=== PATIENT | female | born 1950 | race Caucasian/White ===

== ENCOUNTER → 2018-01-07 09:46 | Outpatient (CLI) | payer MEDICARE, SELFPAY ==
[2018-01-07 12:50] LABS: Absolute Lymphocyte Count 0.93 X10^3/ul (0.83-4.51); Absolute Neutrophil Count 4.2 X10^3/uL (2.0-7.7); Basophil# 0.01 X10^3/uL; Basophil% 0.2 % (0-1); Eosinophil# 0.19 X10^3/uL; Eosinophils% 3.4 % (0-5); Hematocrit 43.3 % (37-47); Hemoglobin 14.1 g/dl (12.0-15.0); Lymphocyte # 0.93 X10^3/ul (4.0); Lymphocyte % 16.5 % (19-41); Mean Corp Hgb Conc 32.6 g/gl (32-36); Mean Corpuscular Hgb 30.3 pg (27.0-32.0); Mean Corpuscular Volume 92.9 fL (81-99); Mean Platelet Vol. 10.4 fl (6.2-12.0); Monocyte# 0.28 X10^3/uL; Neutrophil # 4.21 X10^3/uL (2.7-7.7); Neutrophil % 74.7 % (47-70); Platelet Count 238 K/mm3 (150-450); RBC Distribution Width CV 14.6 % (11.6-14.6); RBC Distribution Width SD 48.9 fl (35.1-43.9); Red Blood Count 4.66 M/mm3 (4.2-5.4); White Blood Count 5.6 K/mm3 (4.4-11.0)
[2018-01-07 13:00] LABS: POSITIVE COUNT NO; POSITIVE DIFFERENTIAL NO; POSITIVE MORPHOLOGY NO
[2018-01-07 13:07] LABS: Ferritin 86 ng/mL (8-252); Iron 133 ug/dL (50-170)
[2018-01-07 13:08] LABS: Hemoglobin A1c 5.3 % (4.2-6.3)
== END ==
PROVIDERS: Visit Provider Family Medicine
DX: D50.9 Iron deficiency anemia, unspecified (principal); I10 Essential (primary) hypertension; R73.01 Impaired fasting glucose
CPT/HCPCS: 36415; 82728; 83036; 83540; 85025

== ENCOUNTER → 2018-01-23 10:14 | Outpatient (CLI) | payer MEDICARE, SELFPAY ==
[2018-01-23 12:23] LABS: AST(SGOT) 26 U/L (15-37); Alanine Aminotransfer ALT/SGPT 40 U/L (13-56); Albumin, Serum 3.7 g/dL (3.2-5.0); Alkaline Phosphatase 97 U/L (45-117); Bilirubin, Direct 0.18 mg/dL (0.00-0.30); Globulin 3.4 g/dL (2.2-4.2); Protein, Total 7.1 g/dL (6.4-8.2)
== END ==
PROVIDERS: Family Provider Family Medicine; PCP Family Medicine; Visit Provider Internal Medicine Rheumatology
DX: R74.8 Abnormal levels of other serum enzymes (principal)
CPT/HCPCS: 36415; 80076

== ENCOUNTER → 2018-05-01 07:51 | Outpatient (CLI) | payer MEDICARE, SELFPAY ==
--- NOTE | 2018-05-01 12:04 | PFT ---
INTRODUCTION: The patient is a 67-year-old female that presents for pulmonary function testing secondary to a diagnosis of pulmonary hypertension. Respiratory therapy reports good patient effort. Bronchodilators were used during testing. INTERPRETATION: Forced expiration spirometry demonstrates no evidence of a large airways obstructive ventilatory defect. There was no significant response to aerosolized bronchodilators. Spirograms are of good quality and plateau gradually. Body plethysmography was performed and reveals lung volumes to be within normal limits. Diffusing capacity by single breath CO is mildly reduced at 65% of predicted. When compared to previous pulmonary function studies dated April 2017, there has been a 25% improvement in the patient's DLCO. IMPRESSION: These pulmonary function studies demonstrate the presence of an isolated mild reduction in diffusing capacity, which appears to have improved since PFTs were last completed in April 2017.
== END ==
PROVIDERS: Family Provider Family Medicine; PCP Family Medicine; Visit Provider Internal Medicine Critical Care Medicine
DX: I27.20 Pulmonary hypertension, unspecified (principal); I48.0 Paroxysmal atrial fibrillation; M06.9 Rheumatoid arthritis, unspecified; J90 Pleural effusion, not elsewhere classified
CPT/HCPCS: 94060; 94726; 94729

== ENCOUNTER → 2018-12-02 13:19 | Outpatient (CLI) | payer MEDICARE, SELFPAY ==
[2018-11-04 09:33] VITALS: BMI 46.9
[2018-12-02 16:16] LABS: ALB/GLOB Ratio 1.1 RATIO (0.9-2.4); AST(SGOT) 24 U/L (15-37); Alanine Aminotransfer ALT/SGPT 28 U/L (13-56); Albumin, Serum 3.8 g/dL (3.2-5.0); Alkaline Phosphatase 91 U/L (45-117); Anion Gap 10 (5-15); BUN 26 mg/dL (7-18); BUN/Creat Ratio 25.7 RATIO (10-20); Calcium,Total 9.4 mg/dL (8.5-10.1); Chloride 108 mmol/L (98-107); Creatinine, Serum 1.01 mg/dL (0.55-1.02); EST Glomerular Filtration Rate 58 mL/min (>60); Est Glom Filt Rate - Afr Amer 71 mL/min (>60); Globulin 3.4 g/dL (2.2-4.2); Glucose 100 mg/dL (74-106); Potassium 4.2 mmol/L (3.5-5.1); Protein, Total 7.2 g/dL (6.4-8.2); Sodium Level 142 mmol/L (136-145); Thyroid Stim Hormone (TSH) 1.48 uIU/mL (0.358-3.74)
[2018-12-02 17:38] LABS: Absolute Lymphocyte Count 0.97 X10^3/ul (0.83-4.51); Absolute Neutrophil Count 3.5 X10^3/uL (2.0-7.7); Basophil# 0.01 X10^3/uL; Basophil% 0.2 % (0-1); Eosinophil# 0.19 X10^3/uL; Eosinophils% 3.8 % (0-5); Hematocrit 46.1 % (37-47); Hemoglobin 15.1 g/dl (12.0-15.0); Lymphocyte # 0.97 X10^3/ul (4.0); Lymphocyte % 19.6 % (19-41); Mean Corp Hgb Conc 32.8 g/gl (32-36); Mean Corpuscular Volume 91.5 fL (81-99); Mean Platelet Vol. 10.8 fl (6.2-12.0); Monocyte# 0.29 X10^3/uL; Monocyte% 5.9 % (0-10); Neutrophil # 3.47 X10^3/uL (2.7-7.7); Neutrophil % 70.3 % (47-70); Platelet Count 262 K/mm3 (150-450); RBC Distribution Width CV 14.3 % (11.6-14.6); RBC Distribution Width SD 47.1 fl (35.1-43.9); Red Blood Count 5.04 M/mm3 (4.2-5.4); White Blood Count 4.9 K/mm3 (4.4-11.0)
[2018-12-02 17:40] LABS: POSITIVE COUNT NO; POSITIVE DIFFERENTIAL NO; POSITIVE MORPHOLOGY NO
== END ==
PROVIDERS: Family Provider Family Medicine; PCP Family Medicine; Visit Provider Family Medicine
DX: N18.3 Chronic kidney disease, stage 3 (moderate) (principal); R73.01 Impaired fasting glucose; I48.0 Paroxysmal atrial fibrillation
CPT/HCPCS: 36415; 80053; 84443; 85025

== ENCOUNTER → 2019-04-15 | Outpatient (CLI) | payer MEDICARE, SELFPAY ==
[2018-11-04 09:33] VITALS: BMI 46.9
--- NOTE | 2019-04-16 11:01 | PFT ---
INTRODUCTION: The patient is a 68-year-old female that presents for pulmonary function studies secondary to a diagnosis of rheumatoid arthritis. Respiratory therapy reports good patient effort. Bronchodilators were used during testing. INTERPRETATION: Forced expiration spirometry demonstrates no evidence of a large airways obstructive ventilatory defect. There was no significant response to aerosolized bronchodilators. Spirograms are of good quality and plateau normally. Body plethysmography was performed and reveals lung volumes to be within normal limits. Diffusing capacity by single breath CO is reduced at 61% of predicted. IMPRESSION: Isolated mild reduction in diffusing capacity.
== END | disposition home or self-care (01) ==
LOC: PSN 06:44
PROVIDERS: Family Provider Family Medicine; PCP Family Medicine; Referring Provider Internal Medicine Critical Care Medicine; Visit Provider Internal Medicine Critical Care Medicine
DX: M06.9 Rheumatoid arthritis, unspecified (principal)
CPT/HCPCS: 94060; 94726; 94729

== ENCOUNTER → 2020-12-11 09:40 | Outpatient (CLI) | payer MEDICARE, SELFPAY ==
[2020-11-02 09:15] VITALS: BMI 49.2
[2020-12-11 12:49] LABS: Cholesterol 263 mg/dL (200); High Density Lipoprotein 65 mg/dL; Triglycerides 109 mg/dL; Very Low Density Lipoprotein 22 mg/dL (5-40)
== END ==
PROVIDERS: PCP Family Medicine; Visit Provider Family Medicine
DX: R73.01 Impaired fasting glucose (principal); I10 Essential (primary) hypertension
CPT/HCPCS: 36415; 80061

== ENCOUNTER 2020-12-28 14:02 | Outpatient (RCR) | payer MEDICARE, SELFPAY ==
[2020-11-02 09:15] VITALS: BMI 49.2
[2021-01-18] MEDS: COVID-19 VACC, MRNA(PFIZER)/PF 30 MCG/0.3 ML SYRINGE IM (07:13)
== END 2020-12-28 23:59 ==
LOC: IMMUN 14:02
PROVIDERS: PCP Family Medicine; Visit Provider Family Medicine
DX: Z23 Encounter for immunization (principal)
CPT/HCPCS: 0002A

== ENCOUNTER → 2024-02-10 | Outpatient (CLI) | payer MEDICARE, SELFPAY ==
--- NOTE | 2024-02-10 07:48 | ECHOD_ITS ---
Reason For Study: DYSPNEA Procedure This was a 2D Doppler, Color Flow transthoracic echocardiogram. The study was technically difficult. Contrast injection was performed. Exam performed in department. Left Ventricle Normal LV size. Left ventricular systolic function is normal. The left ventricular ejection fraction is 55 %. No regional wall motion abnormalities noted. Right Ventricle Normal RV size. Normal systolic function. Atria Normal left atrium. Normal right atrium. Mitral Valve There is mild mitral annular calcification. Mild (1+) eccentric mitral valve insufficiency. Tricuspid Valve Normal tricuspid valve. Moderate (2+) tricuspid valve insufficiency. Pulmonary artery systolic pressure is 68 mmHg. Moderate pulmonary hypertension. Aortic Valve Trisinus/trileaflet aortic valve. Mild focal aortic valve calcification. Pulmonic Valve The pulmonic valve is not well visualized. Great Vessels Normal aortic root. The pulmonary artery is normal size. Normal inferior vena cava. Pericardium/Pleural No pericardial effusion. Medication 22 gauge I.V. with prn adaptor inserted into left arm. Diluted definity 2ml given slow IV push to enhance endocardial definition. MMode/2D Measurements & Calculations LVIDd: 4.0 cm IVSd: 1.4 cm LVOT diam: 1.9 cm LVIDs: 2.7 cm LVPWd: 1.1 cm RVDd: 4.5 cm FS: 32.8 % LVOT area: 2.8 cm2 Ao root diam: 3.3 cm LAV(MOD-bp): 70.0 ml LVAd ap4: 25.2 cm2 LAV(MOD-bp) Indexed: 31.4 ml/m2 LVLd ap4: 7.5 cm LAV(MOD-sp2): 75.3 ml EDV(MOD-sp4): 69.0 ml LAV(MOD-sp4): 61.7 ml EDV(sp4-el): 71.9 ml LVAs ap4: 15.7 cm2 LVLs ap4: 6.1 cm ESV(MOD-sp4): 33.1 ml ESV(sp4-el): 34.0 ml EF(MOD-sp4): 52.0 % EF(sp4-el): 52.7 % LVAd ap2: 27.1 cm2 SV(MOD-sp4): 35.9 ml SV(MOD-sp2): 42.6 ml LVLd ap2: 7.5 cm EDV(MOD-sp2): 79.4 ml EDV(sp2-el): 83.5 ml LVAs ap2: 17.4 cm2 LVLs ap2: 6.8 cm ESV(MOD-sp2): 36.8 ml ESV(sp2-el): 38.0 ml EF(MOD-sp2): 53.7 % SV(sp4-el): 37.9 ml LA dimension(2D): 5.3 cm LA A4 area: 21.4 cm2 RA A4 area: 20.8 cm2 TAPSE: 1.7 cm Time Measurements MV dec time: 0.12 sec Doppler Measurements & Calculations MV E max miller: 103.4 cm/sec Lat Peak E' Miller: 14.4 cm/sec Med Peak E' Miller: 7.6 cm/sec MV A max miller: 78.1 cm/sec E/E' lat: 7.2 E/E' med: 13.7 MV E/A: 1.3 Ao V2 max: 133.7 cm/sec LV V1 max: 96.7 cm/sec MV dec slope: 895.6 cm/sec2 Ao max P.1 mmHg LV V1 max P.7 mmHg Ao V2 mean: 100.1 cm/sec LV V1 mean P.3 mmHg Ao mean P.4 mmHg LV V1 mean: 72.0 cm/sec Ao V2 VTI: 34.0 cm LV V1 VTI: 21.4 cm AV (velocity ratio): 0.63 YAZAN(I,D): 1.7 cm2 YAZAN(V,D): 2.0 cm2 SV(LVOT): 58.9 ml PA V2 max: 98.0 cm/sec TR max miller: 399.9 cm/sec PA max PG (full): 2.0 mmHg TR max P.0 mmHg ECHO/Echo Complete W/ Contrast Interpretation Summary Normal LV size. Left ventricular systolic function is normal. The left ventricular ejection fraction is 55 %. There is mild mitral annular calcification. Pulmonary artery systolic pressure is 68 mmHg. Moderate pulmonary hypertension. Contrast injection was performed. Ordering Physician: Sarah, Mantee Referring Physician: Messi Smith MD Performed By: Tosin Ortega RDCS and Student
== END | disposition home or self-care (01) ==
LOC: CVS 07:47
PROVIDERS: PCP Nurse Practitioner Family; Referring Provider Internal Medicine Cardiovascular Disease; Visit Provider Internal Medicine Cardiovascular Disease
DX: I27.21 Secondary pulmonary arterial hypertension (principal)
CPT/HCPCS: 93306; Q9957; A4216; C8929

== ENCOUNTER → 2024-03-16 | Outpatient (CLI) | payer MEDICARE, SELFPAY ==
[2024-03-16 12:21] LABS: Absolute Lymphocyte Count 0.89 X10^3/uL (0.83-4.51); Absolute Neutrophil Count 4.6 X10^3/uL (2.0-7.7); Basophil# 0.02 X10^3/uL; Basophil% 0.3 % (0-1); Eosinophil# 0.25 X10^3/uL; Hematocrit 42.7 % (37-47); Hemoglobin 13.4 g/dL (12.0-15.0); Lymphocyte # 0.89 X10^3/ul (0.83-4.51); Lymphocyte % 14.4 % (19-41); Mean Corp Hgb Conc 31.4 g/dL (32-36); Mean Corpuscular Hgb 26.6 pg (27.0-32.0); Mean Corpuscular Volume 84.7 fL (81-99); Mean Platelet Vol. 10.2 fl (6.2-12.0); Monocyte% 6.5 % (0-10); NRBC Flagged by Analyzer 0 % (0-5); Neutrophil # 4.59 X10^3/uL (2.7-7.7); Neutrophil % 74.3 % (47-70); Platelet Count 308 K/mm3 (150-450); RBC Distribution Width CV 17.4 % (11.6-14.6); RBC Distribution Width SD 52.4 fl (35.1-43.9); Red Blood Count 5.04 M/mm3 (4.2-5.4); White Blood Count 6.2 K/mm3 (4.4-11.0)
[2024-03-16 12:54] LABS: AST(SGOT) 21 U/L (15-37); Alanine Aminotransfer ALT/SGPT 20 U/L (13-56); Albumin, Serum 3.5 g/dL (3.2-5.0); Alkaline Phosphatase 107 U/L (45-117); Anion Gap 6 (5-15); BUN 23 mg/dL (7-18); BUN/Creat Ratio 22.5 RATIO (10-20); Calcium,Total 10.2 mg/dL (8.5-10.1); Chloride 102 mmol/L (98-107); Cholesterol 229 mg/dL (200); Creatinine, Serum 1.02 mg/dL (0.55-1.02); EST Glomerular Filtration Rate 57 mL/min (>60); Est Glom Filt Rate - Afr Amer 69 mL/min (>60); Globulin 3.6 g/dL (2.2-4.2); Glucose 99 mg/dL (74-106); High Density Lipoprotein 73 mg/dL; Potassium 4.7 mmol/L (3.5-5.1); Protein, Total 7.1 g/dL (6.4-8.2); Sodium Level 139 mmol/L (136-145); Triglycerides 71 mg/dL; Very Low Density Lipoprotein 14 mg/dL (5-40)
[2024-03-16 13:41] LABS: Vitamin D,25 Hydroxy 52.1 ng/mL
== END | disposition home or self-care (01) ==
LOC: BFHLAB 10:16
PROVIDERS: PCP Nurse Practitioner Family; Referring Provider Nurse Practitioner Family; Visit Provider Nurse Practitioner Family
DX: I10 Essential (primary) hypertension (principal); E55.9 Vitamin D deficiency, unspecified; E78.5 Hyperlipidemia, unspecified
CPT/HCPCS: 36415; 80053; 80061; 82306; 85025

== ENCOUNTER → 2024-06-10 | Outpatient (CLI) | payer MEDICARE, SELFPAY ==
[2024-06-10 10:54] LABS: Anion Gap 7 (5-15); BUN 24 mg/dL (7-18); BUN/Creat Ratio 21.4 RATIO (10-20); Chloride 106 mmol/L (98-107); Creatinine, Serum 1.12 mg/dL (0.55-1.02); EST Glomerular Filtration Rate 51 mL/min (>60); Est Glom Filt Rate - Afr Amer 62 mL/min (>60); Glucose 110 mg/dL (74-106); Potassium 4.6 mmol/L (3.5-5.1); Sodium Level 138 mmol/L (136-145)
== END | disposition home or self-care (01) ==
PROVIDERS: PCP Nurse Practitioner Family; Referring Provider Nurse Practitioner Gerontology; Visit Provider Nurse Practitioner Gerontology
DX: I10 Essential (primary) hypertension (principal)
CPT/HCPCS: 36415; 80048

== ENCOUNTER → 2024-08-30 | Outpatient (CLI) | payer MEDICARE, SELFPAY ==
--- OUTSIDE RECORDS SUMMARY | 2024-08-30 08:47 | XMS RPT_ITS | CCD ---
Author Organization [facility] Team Providers Care Forestry Supervisor Name Role Phone Yensho CUSTOMER FACILITIES SUPERVISOR, Angelica A Unavailable Unavailab Nina Salmeron Unavailable Unavailable Mandi MONTES, Laeh A Unavailable Unavailable Nina Lua Unavailable Unavailable Nishi BLANKENSHIP, Elinor Pillai Unavailable Unavaila ble Ramirez BLANKENSHIP, Angelica A Unavailable Unavailab eduardo Corey MD, Jeremy Jimenez Primary Care Provider [phone] Leora HILARIO, Jeremy Jimenez Primary Care Provider JEREMY COREY Primary Care Unavailable Allergies Allergy Classification Reported Allergen(s) Allergy Type Date of Onset Reaction(s) Facility (6 sources) traMADol drug allergy 06-21-2016 itching [facility] Work Phone: (5 sources) Lisinopril; Translations: [LISINOPRIL] Drug Allergy 01-31-[address] [facility] Work Phone: Medications Current Medications Medication Drug Class(es) Dates Sig (Normalized) Sig (Original) amLODIPine 10 mg oral tablet (4 sources) Dihydropyridine Calcium Channel Ken Start: 6 take 1 tablet by mouth once daily amLODIPine (NORVASC) 10 mg tablet TAKE 1 TABLET BY MOUTH ONCE DAILY. 30 tablet 2 12/05/2015 Active Comment on above: TAKE 1 TABLET BY PAULINE ONCE DAILY. aspirin 81 mg delayed release oral tablet (4 sources) Platelet Aggregation Inhibitor, Nonsteroidal Anti-inflammatory Drug Start: 7 take 1 tablet by mouth once daily aspirin, enteric coated (ADULT LOW DOSE ASPIRIN) 81 mg ORAL TbEC Take one(1) tablet daily. 0 08/18/2007 Active Comment on above: Take one(1) tablet d aily. COMPOUNDED PRESCRIPTION (4 sources) Start: 3 COMPOUNDED PRESCRIPTION Indications: Edema KNEE HIGH COMPRESSION STOCKINGS 30-40 MM. 2 pair. DX: EDEMA 2 Each 3 07/14/2013 Active Comment on above: KNEE HIGH COMPRESSIO N STOCKINGS 30-40 MM. 2 pair. DX: EDEMA hydroCHLOROthiazide 25 mg / valsartan 320 mg oral tablet (4 sources) Thiazide Diuretic, Angiotensin 2 Receptor Ken Start: 6 take 1 tablet by mouth once daily Valsartan-Hydroc hlorothiazide 320-25 mg per tablet TAKE 1 TABLET BY MOUTH ONCE DAILY. 30 tablet 2 12/05/2015 Active Comment on above: TAKE 1 TABLET BY PAULINE TH ONCE DAILY. lovastatin 10 mg oral tablet (4 sources) HMG-CoA Reductase Inhibitor Start: 6 take 1 tablet by mouth once daily at bedtime for hyperlipidemia lovastatin (MEVACOR) 10 mg tablet TAKE 1 TABLET BY MOUTH DAILY AT BEDTIME. FOR CHOLESTEROL. 30 tablet 1 11/08/2015 Active Comment on above: TAKE 1 TABLET BY PAULINE TH DAILY AT BEDTIME. FOR CHOLESTEROL. naproxen sodium 220 mg oral tablet (4 sources) Nonsteroidal Anti-inflammatory Drug Start: 7 take 1 tablet by mouth twice daily as needed Naproxen Sodium (ALEVE) 220 mg ORAL Tab Take one(1) tablet twice daily as needed 0 05/28/2007 Active Comment on above: Take one(1) tablet t wice daily as needed traMADol hydrochloride 50 mg oral tablet (4 sources) Opioid Agonist Start: 5 take 1 tablet by mouth every four hours as needed for pain traMADol (ULTRAM) 50 mg tablet Indications: Osteoarthrosis, unspecified whether generalized or localized, lower leg Take 1 tablet by mouth every 4 hours as needed for Pain. 60 tablet 0 03/16/2015 Active Comment on above: Take 1 tablet by pauline th every 4 hours as needed for Pain. Completed/Discontinued Medications Medication Drug Class(es) Dates Sig (Normalized) Sig (Original) ALBUTEROL SULFATE (12 sources) beta2-Adrenergic Agonist Start: 06-21-2016 End: 04-30-2017 take 2 puff(s) by inhalation every four hours as needed VENTOLIN HFA 108 (90 Base) MCG/ACT AERS INH 2 puff q4h as needed ALBUTEROL SULFATE [id number] Anne-Marie Danileson PA-C Start: 06-21-2016 take 2 puff(s) by in halation every four hours as needed VENTOLIN HFA 108 (90 Base) MCG/ACT AERS INH 2 puff q4h as needed ALBUTEROL SULFATE [id number] Gus Goldman Start: 06-21-2016 End: 04-30-2017 take 2 puff(s) by inhalation every four hours as needed VENTOLIN HFA 108 (90 Base) MCG/ACT AERS INH 2 puff q4h as needed ALBUTEROL SULFATE [id number] Gus Goldman DO Start: 06-21-2016 take 2 puff(s) by in halation every four hours as needed VENTOLIN HFA 108 (90 Base) MCG/ACT AERS INH 2 puff q4h as needed ALBUTEROL SULFATE [id number] Gus Goldman DO Start: 06-21-2016 End: 04-30-2017 take 2 puff(s) by inhalation every four hours as needed VENTOLIN HFA 108 (90 Base) MCG/ACT AERS INH 2 puff q4h as needed ALBUTEROL SULFATE [id number] Anne-Marie Danielson PA-C amLODIPine 10 mg / benazepril hydrochloride 20 mg oral capsule (12 sources) Dihydropyridine Calcium Channel Ken, Angiotensin Converting Enzyme Inhibitor Start: 06-21-2016 End: 08-13-2016 take 1 tablet by mouth once daily AMLODIPINE BESY-BENAZEPRIL HCL 10-20 MG CAPS One tablet by mouth daily AMLODIPINE BESY-BENAZEPRIL HCL [id number] Elinor Almodovar LPN amLODIPine 10 mg / hydroCHLOROthiazide 25 mg / valsartan 320 mg oral tablet (12 sources) Thiazide Diuretic, Dihydropyridine Calcium Channel Ken, Angiotensin 2 Receptor Ken Start: 06-21-2016 End: 08-13-2016 take 1 tablet by mouth once daily AMLODIPINE-VALSARTA N-HCTZ 10-320-25 MG TABS One tablet by mouth daily AMLODIPINE-VALSARTA N-HCTZ [id number] Elinor Freya Nishi CUSTOMER FACILITIES SUPERVISOR ferrous sulfate (20 sources) Start: 11-01-2016 take 1 tablet by mouth once daily IRON 325 (65 Fe) MG TABS One tablet by mouth daily FERROUS SULFATE [id number] Messi Smith MD Start: 11-01-2016 End: 04-30-2017 take 1 tablet by mouth once daily IRON 325 (65 Fe) MG TABS One tablet by mouth daily FERROUS SULFATE [id number] Anne-Marie Danielson PA-C Start: 11-01-2016 End: 04-30-2017 take 1 tablet by mouth once daily IRON 325 (65 Fe) MG TABS One tablet by mouth daily FERROUS SULFATE [id number] Anne-Marie Danielson PA-C Start: 11-01-2016 take 1 tablet by pauline th once daily IRON 325 (65 Fe) MG TABS One tablet by mouth daily FERROUS SULFATE [id number] Messi Smith MD Start: 06-21-2016 take 1 tablet by pauline th once daily [facility] IRON 325 (65 Fe) MG TABS One tablet by mouth daily FERROUS SULFATE [id number] Elinor Zunigain Almodovar CUSTOMER FACILITIES SUPERVISOR Start: 06-21-2016 End: 11-22-2016 take 1 tablet by mouth once daily [facility] IRON 325 (65 Fe) MG TABS One tablet by mouth daily FERROUS SULFATE [id number] Elinor Freya Almodovar CUSTOMER FACILITIES SUPERVISOR folic acid 1 mg oral tablet (12 sources) Start: 11-01-2016 End: 04-30-2017 take 1 tablet by mouth once daily FOLIC ACID 1 MG TABS One tablet by mouth daily FOLIC ACID [id number] Anne-Marie Danielson PA-C furosemide 40 mg oral tablet (18 sources) Loop Diuretic Start: 06-21-2016 take 1 tablet by mouth twice daily FUROSEMIDE 40 MG TABS One tablet by mouth twice daily FUROSEMIDE [id number] Gus Goldman DO Start: 06-21-2016 End: 06-24-2016 take 1 tablet by mouth once daily FUROSEMIDE 40 MG TABS One tablet by mouth daily FUROSEMIDE [id number] Elinor Freya Almodovar CUSTOMER FACILITIES SUPERVISOR leucovorin 5 mg oral tablet (6 sources) Folate Analog Start: 04-30-2017 LEUCOVORIN JAKY CIUM 5 MG TABS day after methotrexate LEUCOVORIN CALCIUM [id number] Anne-Marie Danielson PA-C lisinopril 20 mg oral tablet (10 sources) Angiotensin Converting Enzyme Inhibitor Start: 06-21-2016 End: 05-06-2017 take 1 tablet by mouth once daily LISINOPRIL 20 MG TABS One tablet by mouth daily LISINOPRIL [id number] Elinor Freya Almodovar CUSTOMER FACILITIES SUPERVISOR methotrexate 2.5 mg oral tablet (10 sources) Folate Analog Metabolic Inhibitor Start: 11-01-2016 take 8 tablets by mouth every week METHOTREXATE 2.5 MG TABS 8 tablets by mouth weekly METHOTREXATE SODIUM [id number] Elinor Freya Almodovar CUSTOMER FACILITIES SUPERVISOR Start: 11-01-2016 take 6 tablets by mo uth every week METHOTREXATE 2.5 MG TABS six tablets by mouth weekly METHOTREXATE SODIUM [id number] Messi Smith MD METOPROLOL SUCCINATE (16 sources) beta-Adrenergic Ken Start: 06-21-2016 take 1 tablet by mouth once daily TOPROL XL 50 MG [id number] One tablet by mouth daily METOPROLOL SUCCINATE [id number] Gus Hilda Goldman DO Start: 06-21-2016 take 1 tablet by pauline th once daily TOPROL XL 50 MG [id number] One tablet by mouth daily METOPROLOL SUCCINATE [id number] Gus Hilda Goldman DO Start: 06-21-2016 take 1 tablet by pauline th once daily TOPROL XL 50 MG [id number] One tablet by mouth daily METOPROLOL SUCCINATE [id number] Gus Hlida Goldman DO Start: 12-05-2015 take 1 tablet by pauline th once daily metoprolol succinate ER (TOPROL XL) 25 mg 24 hr tablet TAKE 1 TABLET BY MOUTH ONCE DAILY. 30 tablet 2 12/05/2015 Active Comment on above: TAKE 1 TABLET BY PAULINE ONCE DAILY. predniSONE 5 mg oral tablet (18 sources) Corticosteroid Start: 7 take 1 tablet by mouth once daily PREDNISONE 5 MG TABS One tablet by mouth daily PREDNISONE [id number] Messi Smith MD Start: 11-01-2016 End: 04-30-2017 PREDNISONE 5 MG TABS Take milian lf tablet daily PREDNISONE [id number] Precious Ratliff RN RN Problems Active Problems Problem Classification Problem Date Documented Da te Episodic/Chronic Cardiac dysrhythmias (6 sources) Atrial fibrillation; Translations: [Paroxysmal atrial fibrillation] Onset: 10-24-2016 10-24-2016 Chronic Chronic obstructive pulmonary disease and bronchiectasis (6 sources) Chronic obstructive lung disease; Translations: [Chronic obstructive pulmonary disease, unspecified] Onset: 08-01-2016 08-01-2016 Chronic Congestive heart failure; nonhypertensive (6 sources) Acute on chronic diastolic (congestive) heart failure; Translations: [Acute on chronic diastolic (congestive) heart failure] Onset: 10-24-2016 10-24-2016 Chronic Disorders of lipid metabolism (4 sources) Hyperlipidemia; Translations: [Hyperlipidemia, unspecified] 10-17-2010 Chronic Essential hypertension (14 sources) Hypertensive disorder; Translations: [Benign essential hypertension] Onset: 05-28-2007 Resolved: 06-07-2008 04-30-2017 Chronic Genitourinary symptoms and ill-defined conditions (4 sources) Urge incontinence of urine; Translations: [Urge incontinence] 03-15-2010 Chronic Osteoarthritis (4 sources) Osteoarthritis; Translations: [Osteoarthrosis, unspecified whether generalized or localized, lower leg] 10-17-2010 Chronic Other nutritional; endocrine; and metabolic disorders (18 sources) Overweight; Translations: [Body mass index (BMI) 45.0-49.9, adult] Onset: 08-01-2016 Resolved: 04-30-2017 01-20-2017 Chronic Other nutritional; endocrine; and metabolic disorders (9 sources) Body mass index (BMI) 45.0-49.9, adult; Translations: [Body mass index (BMI) 45.0-49.9, adult] Onset: 11-01-2016 Resolved: 04-30-2017 01-20-2017 Chronic Other nutritional; endocrine; and metabolic disorders (3 sources) Obesity; Translations: [Obesity, unspecified] Onset: 08-01-2016 08-01-2016 Chronic Other nutritional; endocrine; and metabolic disorders (4 sources) Morbid obesity; Translations: [Morbid (severe) obesity due to excess calories] Onset: 08-16-2009 10-17-2010 Chronic Pulmonary heart disease (6 sources) Pulmonary hypertension; Translations: [Other secondary pulmonary hypertension] Onset: 10-24-2016 10-24-2016 Chronic Residual codes; unclassified (4 sources) Sleep apnea; Translations: [Sleep apnea, unspecified] Onset: 08-18-2007 10-17-2010 Chronic Residual codes; unclassified (4 sources) Family history of diabetes mellitus; Translations: [Family history of diabetes mellitus] 03-15-2010 Episodic Residual codes; unclassified (4 sources) Edema; Translations: [Edema, unspecified] 10-22-2021 Episodic Respiratory failure; insufficiency; arrest (12 sources) Chronic hypoxemic respiratory failure; Translations: [Czxlp-vo-tfrmqpp respiratory failure] Onset: 08-01-2016 08-28-2016 Chronic Rheumatoid arthritis and related disease (6 sources) Rheumatoid arthritis; Translations: [Rheumatoid arthritis, unspecified] Onset: 08-28-2016 08-28-2016 Chronic Past or Other Problems Problem Classification Problem Date Documented Date Episodic/Chronic Deficiency and other anemia (6 sources) Anemia; Translations: [Anemia, unspecified] Onset: 01-20-2017 01-20-2017 Episodic Diabetes mellitus without complication (4 sources) Impaired fasting glycemia; Translations: [Impaired fasting glucose] Onset: 03-15-2010 10-17-2010 Episodic Other injuries and conditions due to external causes (6 sources) Hypoxia; Translations: [Idiopathic sleep related nonobstructive alveolar hypoventilation] Onset: 11-14-2016 11-14-2016 Episodic Other lower respiratory disease (9 sources) Cough; Translations: [Restrictive lung disease] Onset: 06-24-2016 06-24-2016 Episodic Other lower respiratory disease (3 sources) Restrictive lung disease; Translations: [Other disorders of lung] Onset: 08-01-2016 08-01-2016 Episodic Karissa-; endo-; and myocarditis; cardiomyopathy (6 sources) Pericardial effusion; Translations: [Pericardial effusion (noninflammatory)] Onset: 08-28-2016 08-28-2016 Episodic Pleurisy; pneumothorax; pulmonary collapse (6 sources) Pleural effusion; Translations: [Pleural effusion, not elsewhere classified] Onset: 08-28-2016 08-28-2016 Episodic Respiratory failure; insufficiency; arrest (6 sources) Acute respiratory failure; Translations: [Acute respiratory failure with hypoxia] Onset: 06-24-2016 06-24-2016 Episodic Results Test Name Value Interpretation Reference Range Facility [facility] 03-19-2024 [facility] HNO ID: [id number] Author: COORDINATOR, MAMMOGRAPHY, ? Service: ? Author Type: Physician Type: Letter Filed: 03/19/2024 13:10 Note Text: March 19, 2024 PID: [id number] Martita Noah [address] [place] [address] Dear Ms. Zamora, We are pleased to inform you that the results of your recent breast imaging exam on 03/18/2024 are normal. Early detection of cancer is very important. We also understand recommendations regarding breast cancer screening are controversial. Please discuss with your primary care provider which strategy is best for you and whether a mammogram is right for you. Your imaging studies and report will be kept on file at [facility] as part of your permanent medical record and are available for your continuing care. Thank you for allowing us to help in meeting your health care needs. Sincerely, Dr. Humphreys Interpreting Radiologist [facility] (Normal over 40) Normal [facility] SCREENING W [facility] 03-18 [facility] SCREENING W LAURA * * *Final Report* * * DATE OF EXAM: Mar 18 2024 8:55AM [facility] [id number] - [facility] SCREENING W LAURA / PROCEDURE REASON: Z12.39 * * * * Physician Interpretation * * * * RESULT: #[id number] - [facility] SCREENING W LAURA BILATERAL DIGITAL SCREENING MAMMOGRAM TOMOSYNTHESIS WITH CAD: 03/18/2024 HISTORY: /SEE TECH NOTE /Z12.39 /Screening Mammogram with LAURA - patient reports NO breast symptoms /priors available for comparison. RESULT: TECHNIQUE: The study was acquired using full field digital technology and interpreted from soft copy. Digital Breast Tomosynthesis (DBT) images were obtained and used to assist in the interpretation of this examination. Current study was also evaluated with a Computer Aided Detection (CAD). Comparison is made to exams dated: 03/06/2023 mammogram, 01/10/2022 mammogram, 07/28/2020 mammogram, and 12/14/2018 mammogram - [facility]. There are scattered areas of fibroglandular density. There are benign appearing calcifications in both breasts. No significant masses, calcifications, or other findings are seen in either breast. There has been no significant interval change. IMPRESSION: BENIGN FINDING There is no mammographic evidence of malignancy. A 1 year screening mammogram is recommended. Tamy Humphreys M.D., lm/nohemi:03/19/2024 13:10:50 copy to: Medardo TEJEDA, ph: [phone] Manager Cardiac Cath(s): RT Edin(R)(M), [facility] letter sent: Normal over 40 Mammogram BI-RADS: 2 Benign finding Multiple national specialty organizations have released breast cancer screening guidelines for women at average risk for developing breast cancer - guidelines that are based on both evidence and opinion, yet differ on when to start and how often to screen for breast cancer. With representation from Breast Imaging, Internal Medicine, Women's Health, Family Medicine, and Medical/Surgical Oncology, the [facility] has carefully reviewed the data and reached the following consensus: 1) All women should engage in shared decision-making with their providers to decide when to start and how often to screen; 2) All women should have the opportunity to start screening mammography at age 40; 3) For women ages 45-55, we recommend annual screening mammograms; 4) For women ages 55 and over, we support both the transition from an annual to a biennial interval if this aligns more with patient's values and preferences, or continuation with annual screening; 5) All women should discuss with their providers when to stop screening mammograms. Cashier Associate: Nohemi Transcribe Date/Time: Mar 18 2024 8:10A Dictated by: TAMY HUMPHREYS MD This examination was interpreted and the report reviewed and electronically signed by: TAMY HUMPHREYS MD on Mar 19 2024 1:10PM EST [id number] CN Normal [facility] SCREENING W TOMOon 03-[address] [facility] Lab Report: Basic Metabolic Profile (BMP)on 11-04-2017 Anion gap 4 mmol/L Low 5-15 [facility] Work Phone: [phone] BUN/Creatinine Ratio 22.3 RATIO High 10-20 [facility] Work Phone: [phone] Calcium 9.3 mg/dL Invalid Interpretation Code 8.5-10.1 [facility] Work Phone: [phone] Chloride 103 mmol/L Invalid Interpretation Code 98-107 [facility] Work Phone: [phone] CO2 34.0 mmol/L High 21.0-32.0 [facility] Work Phone: [phone] Creatinine 1.03 mg/dL High 0.55-1.02 [facility] Work Phone: [phone] eGFR (non-black) 57 mL/min/{1.73_m2} Low >60 [facility] Work Phone: [phone] eGFR (non-black) 69 mL/min/{1.73_m2} Invalid Interpretation Code >60 [facility] Work Phone: [phone] Glucose 98 mg/dL Invalid Interpretation Code 70-110 [facility] Work Phone: [phone] Potassium 3.9 mmol/L Invalid Interpretation Code 3.5-5.1 [facility] Work Phone: [phone] Sodium 141 mmol/L Invalid Interpretation Code 136-145 [facility] Work Phone: [phone] Urea nitrogen 23 mg/dL High 7-18 [facility] Work Phone: [phone] Lab Report: Magnesiumon 01-0 Magnesium 2.1 mg/dL Invalid Interpretation Code 1.8-2.4 [facility] Work Phone: [phone] Office Visit: COPD & pulmona ry hypertensionon 05-06-2017 Dietary management education, guidance, and counseling (procedure) yes Invalid Interpretation Code [facility] Phone: Documentation of current medications (procedure) Done Invalid Interpretation Code [facility] Phone: Protein mass conc Done [facility] Phone: Tobacco smoking status NHIS Never Invalid Interpretation Code [facility] Work Phone: Tobacco smoking status NHIS Tobacco smoking status NHIS Invalid Interpretation Code [facility] Work Phone: [phone] Tobacco smoking status NHIS Never smoker [facility] Work Phone: Tobacco use [facility] Never smoker Invalid Interpretation Code [facility] Work Phone: Office Visit: [facility] 04-30-20 17 Dietary management education, guidance, and counseling (procedure) yes Invalid Interpretation Code [facility] Work Phone: [phone] Documentation of current medications (procedure) Done Invalid Interpretation Code [facility] Work Phone: [phone] Fall risk assessment No Invalid Interpretation Code [facility] Work Phone: [phone] Protein mass conc Done [facility] Work Phone: [phone] Office Visit: Consult- anemi a- for colonoscopy & EGDon 01-20-2017 Tobacco smoking status NHIS Never [facility] Work Phone: [phone] Tobacco smoking status VTIS Never smoker [facility] Work Phone: [phone] Tobacco use [facility] Never smoker Invalid Interpretation Code [facility] Work Phone: [phone] External Other: Preferred Me thod of [employer] 11-01-2016 GE use only - for LinkLogic import when terms are not otherwise specified secmsg Invalid Interpretation Code [facility] Work Phone: [phone] METHCONTACT secmsg [facility] Work Phone: [phone] Clinical Lists Update: Prelo dixonac operator 10-24-2016 Left ventricular Ejection fraction 60 % Invalid Interpretation Code [facility] Work Phone: [phone] Clinical Lists Update: Prelo dixonac operator 08-07-2016 BUN/Creatinine Ratio 32.6 mg/mg [facility] Work Phone: [phone] Calcium 9.0 mg/dL [facility] Work Phone: [phone] Chloride 92 mmol/L [facility] Work Phone: [phone] CO2 36.0 mmol/L Invalid Interpretation Code [facility] Work Phone: [phone] CO2 ppres (BldV) 36.0 mmol/L [facility] Work Phone: [phone] Creatinine 0.98 mg/dL [facility] Work Phone: [phone] Glucose 113 mg/dL Invalid Interpretation Code [facility] Work Phone: [phone] Glucose mass conc 113 mg/dL [facility] Work Phone: [phone] Potassium 4.2 mmol/L [facility] Work Phone: [phone] Sodium 135 mmol/L [facility] Work Phone: [phone] Urea nitrogen 32 mg/dL [facility] Work Phone: [phone] Clinical Lists Update: Prelo dixonac operator 08-05-2016 Hematocrit (HCT) 33.1 % Invalid Interpretation Code [facility] Work Phone: [phone] Hematocrit Volume Fraction (Bld) 33.1 % [facility] Work Phone: [phone] Hemoglobin (HGB) 9.6 g/dL Invalid Interpretation Code [facility] Work Phone: [phone] Platelets 408 10*3/mm3 Invalid Interpretation Code [facility] Work Phone: [phone] Platelets #/vol (Bld) 408 10*3/mm3 [facility] Work Phone: [phone] WBC #/vol (Bld) 6.8 10*3/uL [facility] Work Phone: [phone] WBC (Leukocytes) 6.8 10*3/uL Invalid Interpretation Code [facility] Work Phone: [phone] Vital Signs Date Time Vital Sign Value Performing Clinician Faci lity 05-06-2017 07:44-0400 BMI (Body Mass Index) 47.18 kg/m2 lEinor Almodovar LPN [facility] Work Phone: 05-06-2017 07:44-0400 Body Temperature 97.8 [degF] Elinor Almodovar LPN [facility] Work Phone: 05-06-2017 07:44-0400 BP Diastolic 84 mm[Hg] Elinor Almodovar CUSTOMER FACILITIES SUPERVISOR [facility] Work Phone: 05-06-2017 07:44-0400 BP Systolic 132 mm[Hg] Elinor Almodovar CUSTOMER FACILITIES SUPERVISOR [facility] Work Phone: 05-06-2017 07:44-0400 Height 157.48 cm Elinor Almodovar CUSTOMER FACILITIES SUPERVISOR [facility] Work Phone: 05-06-2017 07:44-0400 Pulse (Heart Rate) 70 /min Elinor Almodovar CUSTOMER FACILITIES SUPERVISOR [facility] Work Phone: 05-06-2017 07:44-0400 Respiratory Rate 18 /min Elinor Almodovar CUSTOMER FACILITIES SUPERVISOR [facility] Work Phone: 05-06-2017 07:44-0400 Weight 117.03 kg Elinor Almodovar CUSTOMER FACILITIES SUPERVISOR [facility] Work Phone: 04-30-2017 09:52-0400 BMI (Body Mass Index) 47.62 kg/m2 [facility] Work Phone: 04-30-2017 09:52-0400 BP Diastolic 82 mm[Hg] [facility] Work Phone: 04-30-2017 09:52-0400 BP Systolic 130 mm[Hg] [facility] Work Phone: 04-30-2017 09:52-0400 Height 157.48 cm [facility] Work Phone: 04-30-2017 09:52-0400 Pulse (Heart Rate) 68 /min [facility] Work Phone: 04-30-2017 09:52-0400 Respiratory Rate 20 /min [facility] Work Phone: 04-30-2017 09:52-0400 Weight 118.12 kg [facility] Work Phone: 01-20-2017 13:040 Body Temperature 98.1 [degF] Nina Billingsley [facility] Work Phone: 01-20-2017 13:040 BSA (Body Surface Area) 2.11 m2 Nina Billingsley [facility] Work Phone: 01-20-2017 13:040 Height 157.48 cm Nina Billingsley [facility] Work Phone: 01-20-2017 13:03040 Weight 114.76 kg Leah Raymond RN [facility] Work Phone: Encounters Encounter Date Encounter Type Care Provider Facility Start: 03-19-2024 Documentation procedure Mammog linn Coordinator [facility] Department Start: 03-19-2024 Letter encounter Mammography Coordinator [facility] Start: 03-18-2024 End: 03-18-2024 ambulatory JEREMY SHAHEEN LEORA Facility:[facility] Start: 03-18-2024 End: 03-18-2024 Subsequent hospital visit by physician Screen Mammo [facility] Mammogram Start: 03-07-2023 Documentation procedure Mammog linn Coordinator [facility] Start: 03-07-2023 Letter encounter Mammography Coordinator [facility] Department Start: 03-06-2023 End: 03-06-2023 Subsequent hospital visit by physician Screen Mammo [facility] W[facility] Mammogram Start: 08-15-2010 Female genitalia finding Mammo graphy Coordinator [facility] Work Phone: Procedures Date Procedure Procedure Detail Performing Clinician Start: 03-06-2023 End: 03-06-2023 Mammography [facility] Provider Start: 05-06-2017 End: 05-06-2017 Dietary management education, guidance, and counseling Elinor Almodovar LPN Start: 04-30-2017 End: 04-30-2017 Dietary management education, guidance, and counseling Nina Lua Start: 04-30-2017 End: 04-30-2017 TESTING SHAKING SHIPPING Anne-Marie Danielson PA-C Work Phone: Start: 04-30-2017 End: 04-30-2017 Follow Up Appt 6 months Anne-Marie velasquez PA-C Work Phone: Start: 11-22-2016 End: 05-01-2017 Pulmonary Function Test - complete Gus Goldman DO Work Phone: Start: 11-01-2016 End: 11-01-2016 Follow Up Appt 6 months Hilda Morrissey Start: 11-01-2016 End: 11-01-2016 MMHilda Smith MD Start: 08-28-2016 End: 05-01-2017 DMLaurie Gus Goldman DO Work Phone: Start: 08-28-2016 End: 05-01-2017 Follow Up Appt 3 months Gus Goldman DO Work Phone: Start: 08-28-2016 End: 05-01-2017 Pulmonary stress test/simple Gus Goldman DO Work Phone: Start: 08-28-2016 End: 05-01-2017 Tte w/doppler, complete Gus Goldman DO Work Phone: Start: 08-01-2016 End: 05-01-2017 DMLaurie Gus Goldman DO Work Phone: Start: 08-01-2016 End: 05-01-2017 Follow Up Appt 1 month Gus Goldman DO Work Phone: Start: 07-11-2016 End: 11-11-2016 Pulmonary stress test/simple Ria Plata SURVEY CREW CHIEF Work Phone: Start: 07-08-2016 End: 11-11-2016 Pulmonary Function Test - complete Ria Plata SURVEY CREW CHIEF Work Phone: Start: 06-24-2016 End: 07-02-2016 MURPHY Hopson DIP STAND LOADER Work Phone: Start: 06-24-2016 End: 07-02-2016 Follow Up Appt 1 month Ria lewis SURVEY CREW CHIEF Work Phone: Start: 06-24-2016 End: 07-02-2016 Pulmonary stress test/simple Ria Plata SURVEY CREW CHIEF Work Phone: Start: 02-22-2015 Lipid 1996 panel - S ghazal or Plasma Screen Wstr Plan of Treatment Date Care Activity Detail Author Start: 02-07-2032 Urine microalbumin profile DTaP,Tdap,Td Vaccine (2 - Td or Tdap) [facility] Start: 03-18-2025 Screening for malignant neoplasm of breast Mammogram Screening [facility] Start: 03-06-[address] [facility] Start: 03-06-2024 Screening for malignant neoplasm of breast Mammogram Screening [facility] Start: 10-27-2023 Advance Directive Discussion Advance Directive Discussion [facility] Start: 10-27-2023 Behavioral Health Screening Behavioral Health Screening [facility] Start: 06-27-2023 Covid-19 Vaccine () Covid-19 Vaccine () [facility] Start: 06-27-2023 Covid-19 Vaccine () Covid-19 Vaccine () [facility] Start: 06-27-2023 Influenza vaccination Influenza Vaccine (#1) [facility] Start: 10-27-2022 ADVANCE DIRECTIVE DISCUSSION ADVANCE DIRECTIVE DISCUSSION [facility] Start: 10-27-2022 DEPRESSION ASSESSMENT DEPRESSION ASSESSMENT [facility] Start: 12-27-2020 Pneumococcal Vaccine: 65+ (2 - PCV) Pneumococcal Vaccine: 65+ (2 - PCV) [facility] Start: 02-23-2020 Lipid 1996 panel - Serum or Plasma Lipid Screening [facility] Start: 02-23-2020 Lipid panel Lipid Screening [facility] Start: 02-23-2020 LIPID SCREEN LIPID SCREEN [facility] Start: 02-22-2018 DIABETES SCREEN DIABETES SCREEN [facility] Start: 02-22-2018 Diabetes Screening Diabetes Screening [facility] Start: 2017 BONE DENSITY BONE DENSITY [facility] Start: 2017 Bone Density Screening Bone Density Screening [facility] Start: 2017 Pneumococcal Vaccine: 65+ (1 of 1 - PCV) Pneumococcal Vaccine: 65+ (1 of 1 - PCV) [facility] Start: 2017 PNEUMOCOCCAL: 65+ (1 - PCV) PNEUMOCOCCAL: 65+ (1 - PCV) [facility] Start: 2017 Screening for osteoporosis Bone Density Screening [facility] Start: 11-04-2017 End: 11-04-2017 Appointment Appointment [facility] Work Phone: Start: 05-06-2017 End: 05-06-2017 Appointment Appointment [facility] Work Phone: Start: 05-06-2017 End: 05-06-2017 DMB DMB [facility] Work Phone: Start: 05-06-2017 End: 05-06-2017 Follow Up Appt 1 year Follow Up Appt 1 year [facility] Work Phone: Start: 05-06-2017 End: 05-06-2017 Pulmonary Function Test - complete Pulmonary Function Test - complete [facility] Work Phone: Start: 04-30-2017 End: 04-30-2017 TESTING SHAKING SHIPPING TESTING SHAKING SHIPPING [facility] Work Phone: Start: 04-30-2017 End: 04-30-2017 Follow Up Appt 6 months Follow Up Appt 6 months [facility] Work Phone: Start: 01-20-2017 End: 01-20-2017 Diagnostic colonoscopy Colonoscopy [facility] Work Phone: Start: 01-20-2017 End: 01-20-2017 Follow Up Appt Other Follow Up Appt Other [facility] Work Phone: Start: 01-20-2017 End: 01-20-2017 Uppr gi endoscopy, diagnosis Upper gastrointestinal endoscopy [facility] Work Phone: Start: 11-22-2016 End: 11-22-2016 DMB DMB [facility] Work Phone: Start: 11-22-2016 End: 11-22-2016 Follow Up Appt 6 months Follow Up Appt 6 months [facility] Work Phone: Start: 11-22-2016 End: 05-01-2017 Pulmonary Function Test - complete Pulmonary Function Test - complete [facility] Work Phone: Start: 11-01-2016 End: 11-01-2016 Follow Up Appt 6 months Follow Up Appt 6 months [facility] Work Phone: Start: 11-01-2016 End: 11-01-2016 MMM MMM [facility] Work Phone: Start: 08-28-2016 End: 05-01-2017 MURPHY ARRINGTON [facility] Work Phone: Start: 08-28-2016 End: 05-01-2017 Follow Up Appt 3 months Follow Up Appt 3 months [facility] Work Phone: Start: 08-28-2016 End: 05-01-2017 Pulmonary stress test/simple Pulmonary stress testing; simple (eg, 6-minute walk) [facility] Work Phone: Start: 08-28-2016 End: 05-01-2017 Tte w/doppler, complete Echo Complete with Color Flow [facility] Work Phone: Start: 08-01-2016 End: 05-01-2017 MURPHY ARRINGTON [facility] Work Phone: Start: 08-01-2016 End: 05-01-2017 Follow Up Appt 1 month Follow Up Appt 1 month [facility] Work Phone: Start: 07-11-2016 End: 11-11-2016 Pulmonary stress test/simple Pulmonary stress testing; simple (eg, 6-minute walk) [facility] Work Phone: Start: 07-08-2016 End: 11-11-2016 Pulmonary Function Test - complete Pulmonary Function Test - complete [facility] Work Phone: Start: 06-24-2016 End: 07-02-2016 DMLaurie DMB [facility] Work Phone: Start: 06-24-2016 End: 07-02-2016 Follow Up Appt 1 month Follow Up Appt 1 month [facility] Work Phone: Start: 06-24-2016 End: 07-02-2016 Pulmonary stress test/simple Pulmonary stress testing; simple (eg, 6-minute walk) [facility] Work Phone: Start: 10-05-2015 COLORECTAL CANCER SCREENING COLORECTAL CANCER SCREENING [facility] Start: 10-05-2015 FECAL OCCULT BLOOD FECAL OCCULT BLOOD [facility] Start: 10-05-2015 Screening for malignant neoplasm of colon [facility] Start: 2012 RSV Vaccine (1 - 1-dose 60+ series) RSV Vaccine (1 - 1-dose 60+ series) [facility] Start: 06-26-2007 Urine microalbumin profile DTAP,TDAP,TD (1 - Tdap) [facility] Start: 2002 SHINGRIX VACCINE (1 of 2) SHINGRIX VACCINE (1 of 2) [facility] Start: 1997 COLOGUARD (FIT-DNA) COLOGUARD (FIT-DNA) [facility] Start: 1997 Colonoscopy [address] [facility] Start: [address] COLONOGRAPHY [facility] Start: 1997 Screening for malignant neoplasm of colon [facility] Start: 1997 [address] [facility] Start: 1970 ANNUAL PCP TEAM CHRONIC DISEASE VISIT ANNUAL PCP TEAM CHRONIC DISEASE VISIT [facility] Start: 1970 BP CONTROLLED (<130/80) BP CONTROLLED (<130/80) [facility] Start: 1970 HEPATITIS C SCREENING HEPATITIS C SCREENING [facility] Start: 1970 Hepatitis C screening Hepatitis C Screening [facility] Patient Education [facility] Work Phone: Immunizations Immunization Date Immunization Notes Care Provider Austin martin 08-14-2022 influenza virus vaccine, unspecified formulation Screen Wstr [facility] 08-24-2014 influenza, seasonal, injectable Mammography Coordinator [facility] 08-26-2012 influenza virus vaccine, unspecified formulation Mammography Coordinator [facility] Work Phone: 06-25-2007 tetanus and diphther ia toxoids, adsorbed, preservative free, for adult use (2 Lf of tetanus toxoid and 2 Lf of diphtheria toxoid) Mammography Coordinator [facility] Work Phone: Payers Date Payer Category Payer Medicare MMO MEDICARE MMO MEDADVANTAGE HMO [id number] 2018-Present [phone] [address] [place] [address] O [id number] 2018 Unknown [id number] Social History Date Type Detail Facility Start: 04-03-2011 Tobacco smoking stat us NHIS Never smoked tobacco [facility] Work Phone: Start: 04-03-2011 Tobacco use and exposure Smokeless tobacco non-user 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 Start: 1950 Sex Assigned At Female [facility] Start: 06-12-2022 End: 03-18-2024 History of Social function [facility] Start: 06-12-2022 End: 03-18-2024 Tobacco use panel [facility] Start: 01-03-2022 Gender identity Identifies as female gender (finding) [facility] Start: 01-03-2022 Sexual orientation Heterosexual (fin ding) [facility] National Score (1-10 0), lower number is lower risk [address] [facility] Clinical Note 03-19-2024 Letter - Coordinator, Mammography - 03/19/2024 1:10 PM EDT Note Date & Type Note Facility 03-19-2024 Note Formatting of this n ote might be different from the original. March 19, 2024 PID: [id number] Martita Noah [address] [place] [address] Dear Ms. Zamora, We are pleased to inform you that the results of your recent breast imaging exam on 03/18/2024 are normal. Early detection of cancer is very important. We also understand recommendations regarding breast cancer screening are controversial. Please discuss with your primary care provider which strategy is best for you and whether a mammogram is right for you. Your imaging studies and report will be kept on file at [facility] as part of your permanent medical record and are available for your continuing care. Thank you for allowing us to help in meeting your health care needs. Sincerely, Dr. Humphreys Interpreting Radiologist [facility] (Normal over 40) [facility] Note 03-19-2024 Letter - Coordinator, Mammography - 03/19/2024 1:10 PM EDT Note Date & Type Note Facility 03-19-2024 Miscellaneous Notes Formattin g of this note might be different from the original. March 19, 2024 PID: [id number] Martita Zamora [address] [place] [address] Dear Ms. Zamora, We are pleased to inform you that the results of your recent breast imaging exam on 03/18/2024 are normal. Early detection of cancer is very important. We also understand recommendations regarding breast cancer screening are controversial. Please discuss with your primary care provider which strategy is best for you and whether a mammogram is right for you. Your imaging studies and report will be kept on file at [facility] as part of your permanent medical record and are available for your continuing care. Thank you for allowing us to help in meeting your health care needs. Sincerely, Dr. Humphreys Interpreting Radiologist [facility] (Normal over 40) documented in this encounter [facility] Progress note 03-18-2024 Note Date & Type Note Facility 03-18-2024 Note HNO ID: [id number] Author: ISABEL BOSTON Mammo Tech Service: ? Author Type: [employer] Type: Progress Notes Filed: 03/18/2024 08:34 Note Text: Radiology Service Progress Note PATIENT NAME: Martita Zamora DATE OF SERVICE: March 18, 2024 TIME: 8:07 AM PATIENT IDENTITY VERIFICATION COMPLETED USING TWO (2) IDENTIFIERS: Name and Date of confirmed by patient verbally. FALL SCREENING: Has the patient had 2 falls in the last year or 1 fall with injury or currently using an Ambulatory Assistive Device (Walker, Cane, Wheelchair, Crutches, etc.)? No PATIENT GENDER DATA: Female. status: : No status: NO. PATIENT RELEVANT IMPLANT DATA REVIEWED: Not Applicable PATIENT PRESENTS WITH AN IMPLANTABLE OR ATTACHED ACCESS MANAGER: No RADIOLOGY DEPARTMENT: Mammography PERIPHERAL IV DATA: Not applicable SIGNED BY: Junie Gibson March 18, 2024 8:07 AM [facility] History of Present illness Narrative 03-18-2024 Isabel [facility] - 03/18/2024 8:10 AM EDT Note Date & Type Note Facility 03-18-2024 History of Presen t illness Narrative Radiology Service Progress Note PATIENT NAME: Martita Zamora DATE OF SERVICE: March 18, 2024 TIME: 8:07 AM PATIENT IDENTITY VERIFICATION COMPLETED USING TWO (2) IDENTIFIERS: Name and Date of confirmed by patient verbally. FALL SCREENING: Has the patient had 2 falls in the last year or 1 fall with injury or currently using an Ambulatory Assistive Device (Walker, Cane, Wheelchair, Crutches, etc.)? No PATIENT GENDER DATA: Female. status: : No status: NO. PATIENT RELEVANT IMPLANT DATA REVIEWED: Not Applicable PATIENT PRESENTS WITH AN IMPLANTABLE OR ATTACHED ACCESS MANAGER: No RADIOLOGY DEPARTMENT: Mammography PERIPHERAL IV DATA: Not applicable SIGNED BY: Junie Gibson March 18, 2024 8:07 AM documented in this encounter [facility] Note 03-07-2023 Letter - Mammography Coordinator - 03/07/2023 2:21 PM EDT Note Date & Type Note Facility 03-07-2023 Miscellaneous Notes Formattin g of this note might be different from the original. March 10, 2023 PID: [id number] Martita Zamora [address] [place] [address] Dear Ms. Zamora, We are pleased to inform you that the results of your recent breast imaging exam on 03/06/2023 are normal. Early detection of cancer is very important. We also understand recommendations regarding breast cancer screening are controversial. Please discuss with your primary care provider which strategy is best for you and whether a mammogram is right for you. Your imaging studies and report will be kept on file at [facility] as part of your permanent medical record and are available for your continuing care. Thank you for allowing us to help in meeting your health care needs. Sincerely, Dr. Maguire Interpreting Radiologist [facility] (Normal over 40) documented in this encounter [facility] History of Present illness Narrative 03-06-2023 Charmaine Pedersen RT(R) - 03/06/2023 7:30 AM EDT Note Date & Type Note Facility 03-06-2023 History of Presen t illness Narrative Radiology Service Progress Note PATIENT NAME: Martita Zamora DATE OF SERVICE: March 06, 2023 TIME: 7:22 AM PATIENT IDENTITY VERIFICATION COMPLETED USING TWO (2) IDENTIFIERS: Name and Date of confirmed by patient verbally. FALL SCREENING: Has the patient had 2 falls in the last year or 1 fall with injury or currently using an Ambulatory Assistive Device (Walker, Cane, Wheelchair, Crutches, etc.)? No PATIENT GENDER DATA: Female. status: : No status: NO. PATIENT RELEVANT IMPLANT DATA REVIEWED: Not Applicable RADIOLOGY DEPARTMENT: Mammography PERIPHERAL IV DATA: Not applicable SIGNED BY: RT Allen(R) March 06, 2023 7:22 AM documented in this encounter [facility] History of Past illness Narrative 05-28-2007 Note Date & Type Note Facility 05-28-2007 History of Past i llness Narrative Problem Noted Date Resolved Date Essential hypertension, malignant 05/28/2007 05/28/2007 Unspecified essential hypertension 06/07/2008 documented as of this encounter (statuses as of 03/11/2023) [facility] History of Past illness Narrative 05-28-2007 Note Date & Type Note Facility 05-28-2007 History of Past i llness Narrative Problem Noted Date Diagnosed Date Resolved Date Essential hypertension, malignant 05/28/2007 05/28/2007 Unspecified essential hypertension 06/07/2008 documented as of this encounter (statuses as of 08/31/2023) [facility] Summary Purpose Family History No Family History Records Found Advance Directives No Advanced Directives Records Found Additional Source Comments Source Comments (unrecognize d section and content) In the event this informatio n is protected by the Federal Confidentiality of Alcohol and Drug Abuse Patient Records regulations: The Federal rules restrict any use of the information to criminally investigate or prosecute any alcohol or drug abuse patient.[facility] the event this information is protected by the Federal Confidentiality of Alcohol and Drug Abuse Patient Records regulations: The Federal rules restrict any use of the information to criminally investigate or prosecute any alcohol or drug abuse patient.[facility] the event this information is protected by the Federal Confidentiality of Alcohol and Drug Abuse Patient Records regulations: The Federal rules restrict any use of the information to criminally investigate or prosecute any alcohol or drug abuse patient.[facility] the event this information is protected by the Federal Confidentiality of Alcohol and Drug Abuse Patient Records regulations: The Federal rules restrict any use of the information to criminally investigate or prosecute any alcohol or drug abuse patient.[facility] Care Teams (unrecognized sec tion and content) Forestry Supervisor Relationship Specialty Start Date End Date Jeremy Corey MD PCP - General Family Medicine 11/08/15 Forestry Supervisor Relationship Specialty Start Date End Date Jeremy Corey MD PCP - General Family Medicine 11/08/15 Forestry Supervisor Relationship Specialty Start Date End Date Jeremy Corey MD PCP - General Family Medicine 11/08/15 INFORMATION SOURCE (unrecogn ized section and content) DATE CREATED AUTHOR 03/22/2024 [facility] FOR RECORDS PERTAINING TO PATIENTS WHO ARE OR HAVE BEEN ENROLLED IN A CHEMICAL DEPENDENCY/SUBSTANCEABUSE PROGRAM, SOME INFORMATION MAY BE OMITTED. This clinical summary was aggregated from multiple sources. Caution should be exercised in using it in the provision of clinical care. This summary normalizes information from multiple sources, and as a consequence, information in this document may materially change the coding, format and clinical context of patient data. In addition, data may be omitted in some cases. CLINICAL DECISIONS SHOULD BE BASED ON THE PRIMARY CLINICAL RECORDS. [employer] [facility]. provides no warranty or guarantee of the accuracy or completeness of information in this document.
[2024-08-30 10:10] LABS: Absolute Lymphocyte Count 1.11 X10^3/uL (0.83-4.51); Absolute Neutrophil Count 5.1 X10^3/uL (2.0-7.7); Basophil# 0.02 X10^3/uL; Basophil% 0.3 % (0-1); Eosinophil# 0.21 X10^3/uL; Eosinophils% 3.1 % (0-5); Hematocrit 37.3 % (37-47); Hemoglobin 11.1 g/dL (12.0-15.0); Lymphocyte # 1.11 X10^3/ul (0.83-4.51); Lymphocyte % 16.2 % (19-41); Mean Corp Hgb Conc 29.8 g/dL (32-36); Mean Corpuscular Hgb 26.6 pg (27.0-32.0); Mean Corpuscular Volume 89.4 fL (81-99); Monocyte# 0.36 X10^3/uL; Monocyte% 5.2 % (0-10); NRBC Flagged by Analyzer 0 % (0-5); Neutrophil # 5.14 X10^3/uL (2.7-7.7); Neutrophil % 74.9 % (47-70); Platelet Count 306 K/mm3 (150-450); RBC Distribution Width CV 16.1 % (11.6-14.6); RBC Distribution Width SD 52.4 fl (35.1-43.9); Red Blood Count 4.17 M/mm3 (4.2-5.4); White Blood Count 6.9 K/mm3 (4.4-11.0)
== END | disposition home or self-care (01) ==
PROVIDERS: PCP Nurse Practitioner Family; Referring Provider Internal Medicine Rheumatology; Visit Provider Internal Medicine Rheumatology
DX: D64.9 Anemia, unspecified (principal)
CPT/HCPCS: 36415; 85025

== ENCOUNTER → 2025-05-05 | Outpatient (CLI) | payer MEDICARE, SELFPAY ==
[2025-05-05 10:33] LABS: Hematocrit 36.8 % (37-47); Hemoglobin 11.0 g/dL (12.0-15.0); Immature Granulocytes Count 0.030 X10^3/uL (0.0-0.0); Mean Corp Hgb Conc 29.9 g/dL (32-36); Mean Corpuscular Volume 84.2 fL (81-99); Mean Platelet Vol. 11.1 fl (6.2-12.0); NRBC Flagged by Analyzer 0 % (0-5); Platelet Count 264 K/mm3 (150-450); RBC Distribution Width CV 18.5 % (11.6-14.6); RBC Distribution Width SD 55.8 fl (35.1-43.9); Red Blood Count 4.37 M/mm3 (4.2-5.4); White Blood Count 6.1 K/mm3 (4.4-11.0)
[2025-05-05 11:26] LABS: Anion Gap 13 (5-15); BUN 20 mg/dL (4-19); BUN/Creat Ratio 16.2 RATIO (10-20); CRP 29.90 mg/L (0.0-3.0); Calcium,Total 9.6 mg/dL (7.6-11.0); Carbon Dioxide 22.6 mmol/L (21.0-32.0); Chloride 103 mmol/L (98-108); Glucose 113 mg/dL (70-99); Potassium 4.9 mmol/L (3.3-5.1)
== END | disposition home or self-care (01) ==
LOC: MTLAB 07:53
PROVIDERS: PCP Nurse Practitioner Family; Referring Provider Internal Medicine Rheumatology; Visit Provider Nurse Practitioner Family
DX: R71.0 Precipitous drop in hematocrit (principal); N18.30 Chronic kidney disease, stage 3 unspecified; R79.82 Elevated C-reactive protein (CRP)
CPT/HCPCS: 36415; 80048; 85025; 86140